=== PATIENT | female | born 1955 | race Caucasian/White ===

== ENCOUNTER 2018-05-22 08:18 | Inpatient (IN) ==
--- NOTE | 2018-05-17 18:04 | MH ---
cc: Elvin Courtney MD DATE OF ADMISSION: 05/22/2018 She is scheduled to be admitted to the hospital on 05/22/2018. ADMITTING DIAGNOSIS: Osteoarthritis of the right hip. HISTORY OF PRESENT ILLNESS: The patient is a 62-year-old white female who has had a 3-month history of progressive right hip pain unrelated to injury. She had been accustomed to walking on the beach approximately 5 miles daily as part of an exercise program and is related to this activity, she began to note generalized discomfort along the lateral aspect of her right hip radiating into her groin area that had limited her walking activities. She tried to conform to stretching exercises and taking Aleve, neither of which afforded her any appreciable benefit. The pain interfered with her ability to sleep comfortably through the night. She subsequently presented to the undersigned physician in March of this past year and at that time, her x-ray studies did reveal obvious degenerative changes with deformation of the femoral head and hypertrophic bony reaction along the margins of the femoral head. Findings and treatment options were reviewed with the patient at that time. The pros and cons of continuing with conservative management versus operative intervention that would involve a total hip replacement were outlined in detail. Emphasis was made regarding the fact that the decision to proceed with surgery would be left entirely to the patient's discretion. The patient felt that her symptoms had progressed to a point in time where she was ready to proceed accordingly and in compliance with her wishes, she was scheduled for admission in order that the above be accomplished. Of interest, it is noted that during her adolescent years, the patient did undergo operative intervention of her right hip that involved a pinning type procedure that possibly may have been related to a slipped capital femoral epiphysis. Unfortunately, there are no medical records available in this regard. PAST MEDICAL HISTORY: Otherwise significant for having undergone a left total hip arthroplasty within the previous 25 years for history of degenerative joint disease. She did well in that regard, but did subsequently require a revision of her acetabular liner in 2014 due to polyethylene wear. Her additional operative intervention has included bilateral augmentation mammoplasty with subsequent removal of implants. MEDICAL ILLNESSES: Include hypothyroidism for which she takes levothyroxine 0.125 mg daily. She has also been taking ibuprofen and Extra Strength Tylenol for pain management because of progressive pain involving her right hip area. ALLERGIES: The patient describes a DRUG ALLERGY TO SULFA, which has caused a rash formation. REVIEW OF SYSTEMS: She does wear glasses. Denies headache, seizure, or syncope. Occasional sinus congestion. There is a history of epistaxis related to her sinus problems. Auditory acuity intact. No tenderness. No bleeding gums or dysphagia. No cough, shortness of breath, upper respiratory infection, pneumonia, or tuberculosis. No angina or heart disease. Appetite good. Bowel movements regular. No hepatitis, gallbladder disease, ulcers or hemorrhoids. No urinary tract infection, no kidney stones. No history of fractures. No psychiatric illness. Her remaining review of systems is unremarkable and noncontributory. FAMILY HISTORY: The patient has been for more than 3 years. No children. FAMILY HISTORY: Positive for hypertension, diabetes and leukemia. SOCIAL HISTORY: The patient completed a BA college degree in psychology. 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 Denies active use of tobacco and ethanol. VITAL SIGNS: VITALS: Height 5 feet 6 inches, weight 169 pounds. GENERAL: An alert, oriented and responsive 62-year-old white female who sits quietly upon the examination table in mild discomfort as related to pain about her right hip. HEAD, EARS, EYES, NOSE AND THROAT: Pupils are equally round and reactive to light. Extraocular movements full. Sclerae are clear. External nares clear. External auditory canals clear. Dental intact. Mucous membranes pink and moist. Pharynx clear. NECK: Supple. Active range of motion. No associated pain. Carotid pulse is palpable bilaterally. Trachea midline. Thyroid without enlargement. LUNGS: Clear to auscultation and percussion. No CVA tenderness. No discomfort throughout the dorsolumbar spine. HEART: Regular rhythm. No murmur or gallop. ABDOMEN: Soft, nontender, bowel sounds present. PELVIC: Per primary care physician. EXTREMITIES: Right hip. No localizing tenderness about the hip area, but the groin region is described as a primary discomfort. There is restricted and guarded mobility of the hip joint in all ranges assessed especially involving internal rotation and abduction maneuvering with pain at the extreme of motion. Straight leg raising is unremarkable at 80 degrees. Simon sign is positive. Distal sensory grossly intact. Antalgic gait. NEUROLOGIC: Cranial nerves 2-12 grossly intact. IMPRESSION: Osteoarthritis, right hip. PLAN: Right total hip arthroplasty. The nature of the planned surgical procedure, the potential complications and risks associated, the expectations of surgery and the consent form have been thoroughly reviewed with the patient prior to her admission to the hospital. Derrick has indicated her full understanding regarding all of the above and given consent to proceed with treatment as outlined. Medical evaluation and clearance for surgery completed by her primary care physician, Dr. Zaire Garza. Elvin Courtney MD NBS/ct , 05:28 PM , 05:41 PM
[2018-05-22] MEDS ORDERED: Chlorhexidine 4% Topical 120 APPLIC/120 ML Bottle TOPICAL SCH (09:00)
[2018-05-22] MEDS ORDERED: ceFAZolin 2 GM Premix Inj 2 GM/50 ML PIGGYBACK IV.SIG SCH (09:00)
[2018-05-22] MEDS ORDERED: SODIUM CHLOR 0.9% IV.SIG SCH ×2 (09:00→11:59)
[2018-05-22] MEDS ORDERED: Chlorhexidine Gluconate 2% 1 Pack (2 Cloths) TOPICAL ONE (09:00)
[2018-05-22] MEDS ORDERED: TRANEXAMIC ACID IV.SIG SCH ×2 (09:00→11:59)
[2018-05-22] MEDS ORDERED: Sodium Chlor 0.9% Inj 500 ML IV.CONT ONE (09:00)
[2018-05-22] MEDS ORDERED: Metoprolol Tartrate 25 MG Tablet PO ONE (09:00)
[2018-05-22] MEDS ORDERED: Famotidine PF Inj 20 MG/2 ML Vial ONE (11:17)
[2018-05-22] MEDS ORDERED: GENTAMICIN 240 MG IRRIGATION ONE ×2 (11:45)
[2018-05-22] MEDS ORDERED: SODIUM CHLORIDE 0.9% IRRIGATION ONE ×2 (11:45)
[2018-05-22] MEDS ORDERED: Naloxone Inj 0.4 MG/ML Vial IV.PUSH PRN (12:52)
[2018-05-22] MEDS ORDERED: Zolpidem Tartrate 5 MG Tablet PO PRN (12:52)
[2018-05-22] MEDS ORDERED: Post-op Orders (for Pharmacy) OTHER STA (12:52)
[2018-05-22] MEDS ORDERED: Aluminum/Magnesium/Simethacone Susp 30 ML UDC PO PRN (12:52)
[2018-05-22] MEDS ORDERED: Bisacodyl 10 MG Supp RECTAL PRN (12:52)
[2018-05-22] MEDS ORDERED: Tranexamic Acid Inj 1,000 MG in Sodium Chlor 0.9% Inj 100 ML IV.SIG ONE (12:52)
[2018-05-22] MEDS ORDERED: Acetaminophen 325 MG Tablet PO PRN (12:52)
[2018-05-22] MEDS ORDERED: Morphine Inj 30 MG/30 ML PCA.VIAL PCA PRN (12:52)
[2018-05-22] MEDS ORDERED: Morphine Inj 4 MG/ML Vial IV.PUSH PRN (12:52)
--- NOTE | 2018-05-22 12:56 | P.DCO ---
- Diagnosis (1) Degenerative joint disease of right hip Status: Acute - Physical Therapy Order: Evaluate and treat, Improve ambulation, Strength and gait training - Home Health Nursing Order: Wound care and dressing changes, Nursing assessment with vital signs - Home Health Aide Order: To assist in: Bathing and personal care, car stower and meal prep - Instructor Decorating Order: To evaluate: Living conditions/environment, Support services - Case Management Consult Case Management Consult-Home Health: Yes - Certification I have seen patient Derrick Mao on 05/22/18. My clinical findings support the need for the requested home health care services because: Limited ability to care for self, High risk of falls I certify that my clinical findings support that this patient is homebound because: Post-op weakness, Unsteady gait/balance, Unsafe to leave home unassisted (1) Degenerative joint disease of right hip Qualifiers: Osteoarthritis type: primary Qualified Code(s): M16.11 - Unilateral primary osteoarthritis, right hip
[2018-05-22] MEDS ORDERED: fentaNYL Citrate Inj 100 MCG/2 ML Ampul ONE (13:08)
--- NOTE | 2018-05-22 13:08 | MP ---
cc: Elvin Courtney MD DATE OF OPERATION: 05/22/2018 PREOPERATIVE DIAGNOSIS: Osteoarthritis of the right hip. POSTOPERATIVE DIAGNOSIS: Osteoarthritis of the right hip. PROCEDURE PERFORMED: Right total hip arthroplasty. SURGEON: Dr. Courtney. ANESTHESIA: General endotracheal. INDICATIONS: A 62-year-old white female with a 3 month history of progressive right hip pain unrelated to injury. She had been accustomed to walking on the beach approximately 5 miles daily as part of an exercise program and subsequently began to note generalized discomfort about her right hip area that limited her walking activities. She tried to conform to stretching exercises and taking Aleve, neither of which afforded her any appreciable benefit. Her pain interfered with her ability to sleep comfortably through the night. She presented again to the undersigned physician in March of this past year, at which time x-ray studies revealed obvious degenerative changes with deformation of the femoral head and hypertrophic bony reaction along the margins of the femoral head. Findings and treatment options were reviewed. The pros and cons of continued conservative management versus operative intervention involving total hip replacement were outlined in detail with emphasis being made, that the decision to proceed with surgery would be left entirely to the patient's discretion. The patient considered her options in this regard and thereafter expressed her desire to proceed accordingly for which she was currently admitted to the hospital in order that the above be accomplished. Following the induction of satisfactory general anesthesia by endotracheal intubation as completed per the Department of Anesthesia, the patient was positioned upon the operating table in a left lateral decubitus fashion. The left hip and lower extremity proper were isolated with a U-drape, thereafter being prepped with Betadine solution and draped into a sterile field in the routine manner. Prior to initiation of the actual procedure, the standard timeout protocol was completed. All parameters were appropriately addressed and confirmed by operating room personnel. A standard posterolateral approach to the hip was initiated through a sharp skin incision and developed through underlying subcutaneous tissue with hemostasis maintained by electrocautery. By deepening dissection, the fascia overlying the gluteus musculature was exposed and thereafter sharply incised to the limits of the incision. The underlying gluteus fibers were divided with the Bovie on cutting current. Progressive dissection facilitated exposure of the short external rotator structures. The piriformis tendon was utilized as an anatomical landmark and division of these structures was completed in a superior to inferior orientation and reflected medially, exposing the posterior capsule. The sciatic nerve was protected. An L-shaped capsulotomy was accomplished through which a posterior dislocation of the femoral head completed. Examination revealed severe degenerative changes with complete erosion of articular cartilage, subchondral bone exposed and hypertrophic bony reaction. The femoral template was positioned for alignment orientation. The neck was scored and thereafter divided with power saw. The amputated segment being passed to the back table as surgical specimen. Attention was initially directed to the proximal femur. Cancellous bone was harvested. The tapered reamer was inserted for alignment orientation. Thereafter, sequential rasping and broaching was accomplished from 8 through 14 mm with the 14 mm stem determined to be a satisfactory fit. The trial component being removed, attention was redirected to the acetabulum. The labrum and reactive soft tissue were sharply excised. Progressive reaming was accomplished from 48 through 56 mm. The 56 trial shell positioned and determined to be satisfactory. With all trial components being removed, the wound was copiously irrigated with pulsating antibiotic solution, hemostasis maintained by electrocautery, although it should be noted that there was a continuous venous oozing from the femoral canal throughout the procedure. Thereafter, a 56 mm RingLoc acetabular shell was firmly seated in approximately 45 degrees inclination to the horizontal and slight anteversion. A single 25 mm 6.5 cancellous screw was inserted superiorly to augment fixation. The permanent high wall acetabular liner was affixed to the acetabular shell. Attention returned to the proximal femur. The size 14 trial femoral stem was repositioned and a trial reduction followed utilizing a 36 mm modular head with -6 mm neck length adaptor. The hip readily reduced and was carried through a passive range of motion. Stability demonstrated at 90 degrees flexion and 45 degrees internal rotation. An open dislocation was completed, the trial femoral components being removed, the canal was thoroughly irrigated and dried and thereafter a size 14 Echo [employer] standard stem was firmly seated to which, a 36 mm ceramic head with -6 mm neck length adapter attached and open reduction completed and repeat range of motion again noted stability as previously described. Final irrigation was accomplished, hemostasis maintained by electrocautery. The posterior capsule was repaired with 0 Vicryl suture. Piriformis tendon and short external rotator structures were reapproximated in a similar fashion. Hemovac drain tubes were inserted through superior stab wounds. The fascia of the gluteus musculature was reapproximated with a running 0 Vicryl suture. The remaining portion of the wound was closed in layers in the routine manner, skin margins being reapproximated with a running subcuticular 3-0 Vicryl suture over which Steri-Strips were applied. Xeroform gauze and a bulky dry sterile dressing placed. The patient was repositioned into a supine orientation and abduction splint attached. Anesthesia discontinued. The patient thus transferred to a hospital bed and returned to the recovery room in satisfactory condition, having tolerated her operative procedure well. Estimated blood loss approximately 1100 mL as determined per anesthesia. All implants were of the [employer] special events director. MD LEWIS Thibodeaux/adrian , 12:46 PM , 12:57 PM
--- NOTE | 2018-05-22 13:21 | XR ---
EXAM DATE: 05/22/2018 1:18 PM EST AGE/SEX: 62 years / Female INDICATIONS: Post op right hip surgery CLINICAL DATA: This is the patient's initial encounter. Patient reports that signs and symptoms have been present for 1 day and indicates a pain score of 2/10. MEDICAL/SURGICAL HISTORY: None. None. COMPARISON: No prior exams available for comparison. FINDINGS: Right total hip arthroplasty has been performed and prosthesis appears to be in good position. CONCLUSION: Status post right total hip arthroplasty with prosthesis in good position. Electronically signed by: Jackson Leblanc MD Board Certified Radiologist 05/22/2018 1:20 PM EST
[2018-05-22 13:28] LABS: Hematocrit 27.4 % (35.0-46.0); Hemoglobin 9.3 gm/dL (11.6-15.3)
[2018-05-22] MEDS ORDERED: Albumin Human 5% Inj 250 ML IV.SIG ONE ×3 (14:00→17:00)
--- NOTE | 2018-05-22 14:27 | P.CONIM ---
History of Present Illness Consult date: 05/22/18 Reason for Consult: Medical management Primary Care Provider: Lazarus Garza MD Chief Complaint: Pain History of Present Illness: The patient is a 62-year-old female with a past medical history of hypothyroidism who is presenting to the hospital for an elective right hip replacement. The patient says that at the age of 11 she had pins placed in both of her hips and since then she has been doing well. She eventually required a total left hip replacement x 2. She says that about a month and a half ago she developed pain in her right hip. She says the pain woke her up from sleep and was severe in nature. She has been taking hydrocodone for pain control. She has been able to ambulate without a cane or a walker. She is able to go up and down stairs. The patient had some hypotension following the procedure and was seen in the PACU. She reports some dull pain in the right hip area. She denies any recent fevers or rashes. She denies any constipation or diarrhea. She denies any burning on urination. Discussed with nursing at the bedside. Review of Systems Review of Systems: all other systems reviewed are negative [facility] Medical History Medical History GERD (gastroesophageal reflux disease) (Acute) History of fracture of right hip (Acute) Hypothyroidism (Acute) Pain in right hip (Acute) Right knee pain (Acute) Surgical History Surgical History History of left hip replacement (Acute) Hx of blepharoplasty (Acute) Family History Family History Other Patient denies medical problems Social History Social History Substance History: No History of Abuse Second Hand Smoke Exposure: No Smoking Status: Never smoker How Often Do You Have a Drink Containing Alcohol: Never Recent Travel in [place] within the Last 8 Weeks: No Recent Out of Country Travel within the Last 8 Weeks: No Medications and Allergies Allergies Allergy/AdvReac Type Severity Reaction Status Date / Time Sulfa (Sulfonamide Allergy Severe Hives Verified 05/22/18 08:45 Antibiotics) Home Medications Medication Instructions Recorded Confirmed Type hydrocodone-acetaminophen 1 tab PO HS PRN 05/10/18 05/22/18 History ibuprofen 800 mg PO HS PRN 05/10/18 05/22/18 History levothyroxine 125 mcg PO DAILY 05/10/18 05/22/18 History magnesium 200 mg PO DAILY 05/22/18 05/22/18 History Active Medications: Active Medications Acetaminophen (Tylenol) 650 mg PO Q6H PRN PRN Reason: FEVER > 102 F Hydrocodone Bitart/Acetaminophen ([place] 5/325) 1 tab PO Q4H PRN PRN Reason: PAIN LESS THAN 5 ON SCALE Hydrocodone Bitart/Acetaminophen ([place] 5/325) 2 tab PO Q6H PRN PRN Reason: PAIN SCALE 5 TO 10 Al Hydrox/Mg Hydrox/Simethicone (Mag-Al Plus Susp Liq) 30 ml PO Q6H PRN PRN Reason: INDIGESTION Al Hydroxide/Mg Hydroxide (Milk Of Magnesia Liq) 30 ml PO BID PRN PRN Reason: Mild Constipation Aspirin (Aspirin) 325 mg PO BID [facility] Bisacodyl (Dulcolax Supp) 10 mg RECTAL DAILY PRN PRN Reason: SEVERE CONSITIPATION Chlorhexidine Gluconate (Hibiclens 4% Topical) 1 applicatio TOPICAL ONCE [facility] Stop: 05/26/18 08:59 Lactated Ringer's (Lr 1000 Ml Inj) 1,000 mls @ 30 mls/hr IV.CONT .Q24H ONE Stop: 05/23/18 08:59 Last Admin: 05/22/18 08:55 Dose: 30 mls/hr Sodium Chloride (Ns Inj) 500 mls @ 30 mls/hr IV.CONT .[id number] ONE Stop: 05/23/18 01:39 Last Admin: 05/22/18 09:05 Dose: Not Given Cefazolin Sodium/Dextrose (Ancef 2 Gm Premix Inj) 2 gm in 50 mls @ 100 mls/hr IV.SIG 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 [facility] Stop: 05/26/18 08:59 Last Infusion: 05/22/18 11:47 Dose: Infused Tranexamic Acid 776 mg/ Sodium (Chloride) 107.76 mls @ 200 mls/hr IV.SIG ONCE [facility] Stop: 05/23/18 08:59 Last Infusion: 05/22/18 11:47 Dose: Infused Tranexamic Acid 776 mg/ Sodium (Chloride) 107.76 mls @ 200 mls/hr IV.SIG ONCE [facility] Stop: 05/23/18 11:58 Cefazolin Sodium/Dextrose (Ancef 1 Gm Premix Inj) 1 gm in 50 mls @ 200 mls/hr IV.SIG Q6H [facility] Stop: 05/23/18 04:14 Lactated Ringer's (Lr 1000 Ml Inj) 1,000 mls @ 125 mls/hr IV.CONT .Q8H [facility] Morphine Sulfate (Morphine Inj) 30 mg in 30 mls @ 0 mls/hr PROOF COINS INSPECTOR UNSCH PRN PRN Reason: prn pain Stop: 05/23/18 12:51 Albumin Human (Buminate 5% Inj) 250 mls @ 250 mls/hr IV.SIG ONCE ONE Stop: 05/22/18 14:59 Lactulose (Lactulose Liq) 30 ml PO DAILY PRN PRN Reason: SEVERE CONSITIPATION Levothyroxine Sodium (Synthroid) 125 mcg PO DAILY@0600 [facility] Magnesium Oxide (Mag-Ox) 200 mg PO DAILY@1100 [facility] Miscellaneous Information [place] [place] [facility] [place] 0 each OTHER UNSCH PRN PRN Reason: SEE DOSE INSTRUCTIONS Miscellaneous Information ([facility] [place] [facility] [place] 0 each OTHER UNSCH PRN PRN Reason: SEE LABEL COMMENTS Stop: 05/23/18 13:07 Morphine Sulfate (Morphine Inj) 2 mg IV.PUSH Q3H PRN PRN Reason: BREAKTHROUGH PAIN Naloxone HCl (Narcan Inj) 0.4 mg IV.PUSH PRN PRN PRN Reason: Resp rate < 10 Ondansetron HCl (Zofran Inj) 4 mg IV.PUSH Q6H PRN PRN Reason: NAUSEA OR VOMITING Povidone Iodine (Betadine 7.5% Scrub) 1 applicatio TOPICAL ONCE [facility] Stop: 05/26/18 08:59 Last Admin: 05/22/18 09:27 Dose: 1 applicatio Senna/Docusate Sodium (Raiza-Colace) 1 tab PO BID [facility] Sennosides (Senokot) 17.2 mg PO BID PRN PRN Reason: Moderate Constipation Sodium Chloride (Ns Flush) 2 ml IV.FLUSH BID [facility]ERELLE Sodium Chloride (Ns Flush) 2 ml IV.FLUSH PRN PRN PRN Reason: FLUSH AFTER USING IV ACCESS Zolpidem Tartrate (Ambien) 5 mg PO HS PRN PRN Reason: INSOMNIA Physical Exam Vital signs: Last Vital Signs Temp 98.5 F 05/22/18 09:11 Pulse 77 05/22/18 09:11 Resp 20 05/22/18 09:11 BP 165/97 H 05/22/18 09:11 Pulse Ox 100 05/22/18 09:11 Intake & Output 05/20/18 05/21/18 05/22/18 05/23/18 06:59 06:59 06:59 06:59 Intake Total 2500.76 / 2500.76 Output Total 1100 / 1100 Balance 1400.76 / 1400.76 Weight 77.6 kg Narrative: General: NAD. HEENT: NC, AT. Cardiac: RRR. No M/R/G. Lungs: CTAB. No W/R/R. Abdomen: Soft, NT, ND. Extremities: RLE with bandage around right hip. Palpable pulse along right medial malleolus. Neuro: No gross deficits. Results Labs CBC & Chem 7: 05/22/18 13:12 Imaging Impressions Hip X-Ray 05/22/18 12:49 CONCLUSION: Status post right total hip arthroplasty with prosthesis in good position. ABG Impressions Hip X-Ray 05/22/18 12:49 CONCLUSION: Status post right total hip arthroplasty with prosthesis in good position. Assessment and Plan (1) Degenerative joint disease of right hip: Code(s): M16.11 - Unilateral primary osteoarthritis, right hip Status: Acute Plan Osteoarthritis S/p right hip arthroplasty 05/22/18. She did have EBL of around 1100 ml and had post-operative hypotension requiring vasopressors. -wean vasopressors and increase IVFs. -follow CBC regularly. Initial hgb was 9.3. -pain control with a bowel regimen. -wound care, weight bearing and anticoagulation per surgery. Hypotension Related to blood loss from surgery. -wean of vasopressors and continue IVFs. -consult nurse plastics if does not resolve. Blood pressure was WNL in the PACU. Hypothyroidism Chronic. -continue levothyroxine. PPx: Per surgery _ (1) Degenerative joint disease of right hip Qualifiers: Osteoarthritis type: primary Qualified Code(s): M16.11 - Unilateral primary osteoarthritis, right hip
[2018-05-22] MEDS ORDERED: *morphine SULFATE 4 MG/ML PERIprocedure ONLY ONE (14:33)
[2018-05-22] MEDS: ceFAZolin 1 GM Premix Inj 1 GM/50 ML PIGGYBACK IV.SIG SCH ×2 (16:00→23:15)
[2018-05-22] MEDS ORDERED: ceFAZolin 1 GM Premix Inj 1 GM/50 ML PIGGYBACK IV.SIG ONE ×3 (16:05→23:30)
[2018-05-22 17:52] LABS: Hematocrit 25.2 % (35.0-46.0); Hemoglobin 8.4 gm/dL (11.6-15.3); Mean Corpuscular HGB Conc 33.5 % (32.0-36.0); Mean Corpuscular Hemoglobin 29.8 pg (27.0-34.0); Mean Corpuscular Volume 89.1 fL (80.0-100.0); Mean Platelet Volume 6.8 fL (7.0-11.0); Platelet Count 242 th/mm3 (150-450); Red Blood Count 2.83 mil/mm3 (4.00-5.30); White Blood Count 12.7 th/mm3 (4.0-11.0)
[2018-05-22] MEDS ORDERED: Phenylephrine Inj 40 MG in Dextrose 5% in Water Inj 496 ML IV.CONT PRN ×2 (18:30)
[2018-05-22] MEDS: Senna/Docusate Sodium 8.6/50 MG Tablet PO SCH (23:15)
[2018-05-22] MEDS: Aspirin 325 MG Tablet PO SCH (23:15)
[2018-05-23 00:15] LABS: Hematocrit 21.5 % (35.0-46.0); Hemoglobin 7.3 gm/dL (11.6-15.3); Mean Corpuscular HGB Conc 33.9 % (32.0-36.0); Mean Corpuscular Hemoglobin 30.2 pg (27.0-34.0); Mean Corpuscular Volume 88.9 fL (80.0-100.0); Mean Platelet Volume 6.5 fL (7.0-11.0); Platelet Count 244 th/mm3 (150-450); Red Blood Count 2.42 mil/mm3 (4.00-5.30); Red Cell Distribution Width 13.8 % (11.6-17.2); White Blood Count 9.6 th/mm3 (4.0-11.0)
[2018-05-23] MEDS: ceFAZolin 1 GM Premix Inj 1 GM/50 ML PIGGYBACK IV.SIG SCH (04:56)
[2018-05-23] MEDS: Levothyroxine 125 MCG Tablet PO SCH (05:00)
[2018-05-23 07:00] LABS: Mean Corpuscular Hemoglobin 30.8 pg (27.0-34.0); Mean Corpuscular Volume 87.9 fL (80.0-100.0); Platelet Count 244 th/mm3 (150-450); Red Blood Count 2.17 mil/mm3 (4.00-5.30); Red Cell Distribution Width 13.8 % (11.6-17.2); White Blood Count 9.1 th/mm3 (4.0-11.0)
[2018-05-23 07:08] LABS: Hemoglobin 6.7 gm/dL (11.6-15.3)
[2018-05-23 07:24] LABS: Carbon Dioxide 26.4 meq/L (21.0-32.0); Magnesium 2.1 mg/dL (1.5-2.5)
--- NOTE | 2018-05-23 08:52 | P.PNIM ---
Subjective Interval history: Follow-up right hip arthroplasty, hypotension, hypothyroidism and postop anemia. Patient seen and examined laying in bed, complaining of severe headache patient states that she usually take Afrin at home and usually help this kind of a headache at home. Patient denies any dizziness, denies any nausea or vomiting. Patient stated right hip pain is controlled, just had pain medication through the [employer]OL[employer] COU[employer]SE DESIGNER pump. Discussed the patient the low blood count, and the loss of blood from the surgery which requires blood transfusion at this time due to critical low blood count. Family in room discussed and agreed with the plan. Nurse in the room discussed patient concern. Physical Exam Vital signs: Last Vital Signs Temp 99.9 F H 05/23/18 04:49 Pulse 75 05/23/18 04:49 Resp 18 05/23/18 04:49 BP 114/59 L 05/23/18 04:49 Pulse Ox 98 05/23/18 04:49 Intake & Output 05/21/18 05/22/18 05/23/18 05/24/18 06:59 06:59 06:59 06:59 Intake Total 4510.76 / 4510.76 Output Total 1375 / 1375 Balance 3135.76 / 3135.76 Weight 84.9 kg Narrative: GENERAL: Well-developed, well-nourished, female laying in bed in no acute distress SKIN: Warm and dry. HEAD: Atraumatic. Normocephalic. EYES: Pupils equal and round. No scleral icterus. No injection or drainage. ENT: No nasal bleeding or discharge. Mucous membranes pink and moist. NECK: Trachea midline. No JVD. CARDIOVASCULAR: Regular rate and rhythm. RESPIRATORY: No accessory muscle use. Clear to auscultation. Breath sounds equal bilaterally. GASTROINTESTINAL: Abdomen soft, non-tender, nondistended. Hepatic and splenic margins not palpable. MUSCULOSKELETAL: Extremities without clubbing, cyanosis,. Right hip incision, drain in place with minimal amount of sanguinous drainage NEUROLOGICAL: Awake and alert. No obvious cranial nerve deficits. Motor grossly within normal limits. Five out of 5 muscle strength in the arms and legs except right lower extremity with limited range of motion, pulses palpable sensation intact right foot and digits with good range of motion. Normal speech. PSYCHIATRIC: Appropriate mood and affect; insight and judgment normal. Results Labs CBC & Chem 7: 05/23/18 05:28 05/23/18 05:28 Imaging Imaging: Impressions Hip X-Ray 05/22/18 12:49 CONCLUSION: Status post right total hip arthroplasty with prosthesis in good position. Assessment and Plan (1) Degenerative joint disease of right hip: Code(s): M16.11 - Unilateral primary osteoarthritis, right hip Status: Acute Plan The patient is a 62-year-old female with a past medical history of hypothyroidism who is presenting to the hospital for an elective right hip replacement. The patient says that at the age of 11 she had pins placed in both of her hips and since then she has been doing well. She eventually required a total left hip replacement x 2 Osteoarthritis S/p ELECTIVE right hip arthroplasty 05/22/18. - She did have EBL of around 1100 ml and had post-operative hypotension requiring vasopressors. -continue increase IVFs. -follow CBC regularly. Initial hgb was 9.3, trending down that requires blood transfusion -pain control with a bowel regimen. -wound care, weight bearing and anticoagulation per surgery. Acute Anemia -related to blood loss from surgery -baseline Hgb 9.3, trending down, 6.7 today -will transfuse PRBC x 2 units with Lasix in between units -recheck CBC at 4 pm and in am Hypotension Related to blood loss from surgery. -s/p vasopressors - continue IVFs. -consult batch freezer operator if does not resolve. Blood pressure was WNL in the PACU. -BP improving Hypothyroidism Chronic. -continue levothyroxine. Sinus Allergy/congestion Headache, r/t sinus congestion acute on chronic -start home med, Afrin DVT Prophylaxis : ASA bid per ortho and early ambulation Progress Note: Quality VTE Deep Vein Thrombosis/Pulmonary Embolism Present on Admission: No _ (1) Degenerative joint disease of right hip Qualifiers: Osteoarthritis type: primary Qualified Code(s): M16.11 - Unilateral primary osteoarthritis, right hip
[2018-05-23] MEDS ORDERED: Sodium Chlor 0.9% Inj 250 ML IV.SIG SCH (09:00)
[2018-05-23] MEDS: Senna/Docusate Sodium 8.6/50 MG Tablet PO SCH ×2 (10:09→21:27)
[2018-05-23] MEDS: Magnesium Oxide 400 MG Tablet PO SCH (10:09)
[2018-05-23] MEDS: Aspirin 325 MG Tablet PO SCH ×2 (10:09→21:27)
[2018-05-23 15:38] LABS: Baso % (Auto) 0.5 % (0.0-2.0); Eos % (Auto) 0.1 % (0.0-4.0); Hematocrit 27.4 % (35.0-46.0); Hemoglobin 9.7 gm/dL (11.6-15.3); Lymph # (Auto) 1.3 th/mm3 (1.0-4.8); Lymph % (Auto) 16.6 % (9.0-44.0); Mean Corpuscular HGB Conc 35.3 % (32.0-36.0); Mean Corpuscular Hemoglobin 31.1 pg (27.0-34.0); Mean Corpuscular Volume 88.3 fL (80.0-100.0); Mean Platelet Volume 6.7 fL (7.0-11.0); Mono # (Auto) 0.6 th/mm3 (0.0-0.9); Neut % (Auto) 75.8 % (16.0-70.0); Platelet Count 201 th/mm3 (150-450); Red Cell Distribution Width 14.1 % (11.6-17.2); White Blood Count 7.9 th/mm3 (4.0-11.0)
[2018-05-24] MEDS: Levothyroxine 125 MCG Tablet PO SCH (05:11)
[2018-05-24 05:57] LABS: Hematocrit 27.2 % (35.0-46.0); Hemoglobin 9.4 gm/dL (11.6-15.3); Mean Corpuscular HGB Conc 34.7 % (32.0-36.0); Mean Corpuscular Hemoglobin 30.4 pg (27.0-34.0); Mean Corpuscular Volume 87.9 fL (80.0-100.0); Mean Platelet Volume 7.1 fL (7.0-11.0); Platelet Count 192 th/mm3 (150-450); Red Cell Distribution Width 14.1 % (11.6-17.2); White Blood Count 6.5 th/mm3 (4.0-11.0)
[2018-05-24 06:14] LABS: Calcium 8.2 mg/dL (8.5-10.1); Carbon Dioxide 31.4 meq/L (21.0-32.0); Potassium 4.4 meq/L (3.5-5.1)
[2018-05-24] MEDS: Aspirin 325 MG Tablet PO SCH ×3 (07:32→21:06)
[2018-05-24] MEDS: Senna/Docusate Sodium 8.6/50 MG Tablet PO SCH ×3 (07:32→21:06)
--- NOTE | 2018-05-24 10:13 | P.PNIM ---
Subjective Interval history: Follow-up right hip arthroplasty, osteoarthritis, acute anemia , hypotension, hypothyroidism and neck muscle spasm Patient seen and examined laying in bed, family at bedside. Patient stated her neck feels much better after the Flexeril, stated she feels like she is a new person today. Patient stated also the right hip pain is controlled by pain medication, states that she is comfortable in no pain at the moment. Patient denies any headache or dizziness, denies any chest pain or shortness of breath, denies any abdominal pain, nausea, vomiting, diarrhea or constipation. Patient stated he is she is passing gas however did not have bowel movement yet. Stated just had laxative today. Nurse address no acute concerns Physical Exam Vital signs: Vital Signs 05/23/18 12:00 05/23/18 12:25 05/23/18 12:27 Temperature 98.7 F 98.5 F 98.5 F Pulse Rate 69 72 72 Respiratory Rate 18 18 18 Blood Pressure 116/57 L 116/61 116/61 Pulse Oximetry 96 94 L 99 05/23/18 12:40 05/23/18 15:00 05/23/18 16:59 Temperature 97.9 F 98.3 F 99.0 F Pulse Rate 66 74 70 Respiratory Rate 18 18 18 Blood Pressure 109/55 L 121/62 122/61 Pulse Oximetry 99 99 98 05/23/18 20:00 05/24/18 00:05 05/24/18 05:18 Temperature 98 F 97.6 F 98.2 F Pulse Rate 73 72 68 Respiratory Rate 18 17 16 Blood Pressure 111/54 L 95/55 L 137/66 Pulse Oximetry 95 94 L 95 05/24/18 08:00 Temperature 97.6 F Pulse Rate 82 Respiratory Rate 20 Blood Pressure 115/56 L Pulse Oximetry 93 L Intake & Output 05/23/18 05/24/18 05/24/18 18:59 06:59 18:59 Intake Total 1999 Balance 1999 Intake: IV 1999 LR 1000 mL Inj 1,000 ML @ 125 1999 mls/hr IV.CONT .Q8H [facility] Rx#: [id number] Intake (Blood Product) Amt 0 / 0 Rbc As-3 Leukoreduced Unit 0 / 0 [id number] Rbc As-3 Leukoreduced Unit 0 / 0 [id number] Other: Date of Last Bowel Movement 05/21/18 Narrative: GENERAL: Well-developed, well nourished, female in no apparent distress SKIN: Warm and dry. HEAD: Atraumatic. Normocephalic. EYES: Pupils equal and round. No scleral icterus. No injection or drainage. ENT: No nasal bleeding or discharge. Mucous membranes pink and moist. NECK: Trachea midline. No JVD. CARDIOVASCULAR: Regular rate and rhythm. RESPIRATORY: No accessory muscle use. Clear to auscultation. Breath sounds equal bilaterally. GASTROINTESTINAL: Abdomen soft, non-tender, nondistended. Hepatic and splenic margins not palpable. MUSCULOSKELETAL: Extremities without clubbing, cyanosis. Right hip incision dressed, drain in place with sanguinous drainage. Right lower extremity CKS in place, right pedal pulse palpable, good sensation on 5 toes NEUROLOGICAL: Awake and alert. No obvious cranial nerve deficits. Motor grossly within normal limits. Five out of 5 muscle strength in the arms and legs except right lower extremity with limited range of motion. Normal speech. PSYCHIATRIC: Appropriate mood and affect; insight and judgment normal. Results Labs CBC & Chem 7: 05/24/18 04:54 05/24/18 04:54 Assessment and Plan (1) Degenerative joint disease of right hip: Code(s): M16.11 - Unilateral primary osteoarthritis, right hip Status: Acute Plan The patient is a 62-year-old female with a past medical history of hypothyroidism who is presenting to the hospital for an elective right hip replacement. The patient says that at the age of 11 she had pins placed in both of her hips and since then she has been doing well. She eventually required a total left hip replacement x 2 Osteoarthritis S/p ELECTIVE right hip arthroplasty 05/22/18. - She did have EBL of around 1100 ml and had post-operative hypotension requiring vasopressors. -continue increase IVFs. -follow CBC regularly. Initial hgb was 9.3, trending down that requires blood transfusion -pain control with a bowel regimen. -wound care, weight bearing and anticoagulation per surgery -Orthopedic following: Appreciate recommendations Acute Anemia -related to blood loss from surgery -s/p blood transfusion PRBC x 2 units with Lasix in between units -Hemoglobin back to baseline, 9.7 today -Add iron supplements -Monitor CBC Hypotension Related to blood loss from surgery. -s/p vasopressors - continue IVFs -BP improving Hypothyroidism Chronic. -continue levothyroxine. Sinus Allergy/congestion Headache, r/t sinus congestion acute on chronic -start home med, Afrin -Improving Acute neck pain Likely muscle spasm of the neck area -continue prn Flexeril -improving DVT Prophylaxis : ASA bid per ortho and early ambulation Code Status: full code Discussed Condition With: Patient, family, and nurse Discharge Planning: Plan for discharge per Ortho recommendation Progress Note: Quality VTE Deep Vein Thrombosis/Pulmonary Embolism Present on Admission: No _ (1) Degenerative joint disease of right hip Qualifiers: Osteoarthritis type: primary Qualified Code(s): M16.11 - Unilateral primary osteoarthritis, right hip
[2018-05-24] MEDS: Magnesium Oxide 400 MG Tablet PO SCH (12:36)
[2018-05-24] MEDS: Ferrous Sulfate 325 MG Tablet PO SCH ×2 (12:45→17:40)
[2018-05-25] MEDS: Levothyroxine 125 MCG Tablet PO SCH (05:10)
[2018-05-25] MEDS: Aspirin 325 MG Tablet PO SCH ×2 (07:49→09:39)
[2018-05-25 08:09] LABS: Baso % (Auto) 0.6 % (0.0-2.0); Eos # (Auto) 0.2 th/mm3 (0.0-0.4); Eos % (Auto) 2.7 % (0.0-4.0); Hematocrit 27.1 % (35.0-46.0); Lymph # (Auto) 1.5 th/mm3 (1.0-4.8); Lymph % (Auto) 26.8 % (9.0-44.0); Mean Corpuscular HGB Conc 33.3 % (32.0-36.0); Mean Corpuscular Hemoglobin 29.7 pg (27.0-34.0); Mean Corpuscular Volume 89.2 fL (80.0-100.0); Mean Platelet Volume 6.9 fL (7.0-11.0); Mono # (Auto) 0.5 th/mm3 (0.0-0.9); Mono % (Auto) 9.2 % (0.0-8.0); Neut # (Auto) 3.4 th/mm3 (1.8-7.7); Neut % (Auto) 60.7 % (16.0-70.0); Platelet Count 204 th/mm3 (150-450); Red Blood Count 3.04 mil/mm3 (4.00-5.30); Red Cell Distribution Width 13.7 % (11.6-17.2); White Blood Count 5.6 th/mm3 (4.0-11.0)
--- NOTE | 2018-05-25 08:41 | MD ---
cc: Elvin Courtney MD, DATE OF DISCHARGE: ADMITTING DIAGNOSIS: Osteoarthritis, right hip. DISCHARGE DIAGNOSIS: Osteoarthritis, right hip. HISTORY: A 62-year-old white female with a 3-month history of progressive right hip pain unrelated to injury. She had been accustomed to beach walking approximately 5 miles daily as part of an exercise program, becoming progressively more symptomatic with pain about the right hip. It began to limit her walking activities. She tried to conform to a stretching exercise program and was taking Aleve, neither of which afforded her any benefit. The pain subsequently began to interfere with her ability to sleep comfortably through the night. She presented to the undersigned physician in March of this past year; and, at that time, her x-ray studies revealed obvious degenerative changes with deformation of the femoral head and hypertrophic bony reaction along the margins of the head itself. Findings and treatment options were reviewed. The pros and cons of continued conservative management versus operative intervention involving total hip replacement were outlined in detail. Emphasis was made regarding the fact that the decision to proceed with surgery will be left entirely to the patient's discretion. The patient felt that her symptoms had progressed to a point in time where she was ready to proceed accordingly. In compliance with her wishes, she was scheduled for admission at this time in order that the above be accomplished. PHYSICAL EXAMINATION: No localizing tenderness about the right hip. There was discomfort in the groin area. Restricted and guarded mobility in all ranges assessed, especially involving internal rotation and abduction maneuvering with pain at the extremes of motion. Straight leg raising unremarkable at 80 degrees. Simon sign positive. Distal sensory grossly intact. Antalgic gait. HOSPITAL COURSE: Prior to admission to the hospital, the patient had undergone medical evaluation and clearance for surgery as completed by her primary care physician, Dr. Garza. She was taken to the operating room on 05/22/2018 and on that date underwent a right total hip arthroplasty completed in an uncomplicated manner. The patient was noted to have tolerated her operative procedure well, her postoperative course stable thereafter. She was progressively mobilized under the guidance of physical therapy being permitted weightbearing to tolerance about the right lower extremity. Followup examination of her surgical wound noted to be intact, healing favorably with no evidence of infection. Medical followup per the hospitalist service. The patient did require transfusion of 2 units of packed cells postoperatively for a hemoglobin noted to drop to 7.3. Otherwise, her course was unremarkable. manager managed backup services assisted with discharge planning and the patient indicated her desire to be discharged home. Plans were finalized in this regard. She was subsequently discharged on the third postoperative day, at which time she was noted to be making favorable progress with regard to her rehab program. Scheduled to be seen in office followup in approximately 4 weeks. CONDITION AT THE TIME OF DISCHARGE: Stable. PROGNOSIS: Favorable. DISCHARGE MEDICATIONS: Included 1. Hydrocodone 10/325, #30. 2. Aspirin 325 mg 1 twice daily for 4 weeks, #60. 3. Flexeril 10 mg #20. MD LEWIS Thibodeaux/ts , 06:32 AM , 06:40 AM
[2018-05-25 08:55] VITALS: RESP 19; O2SAT 97
[2018-05-25] MEDS: Senna/Docusate Sodium 8.6/50 MG Tablet PO SCH (09:40)
[2018-05-25] MEDS: Magnesium Oxide 400 MG Tablet PO SCH (11:07)
[2018-05-25] MEDS: Ferrous Sulfate 325 MG Tablet PO SCH (11:07)
--- NOTE | 2018-05-25 12:01 | P.PNIM ---
Subjective Interval history: Follow-up right hip arthroplasty, osteoarthritis, acute anemia , hypotension, hypothyroidism and neck muscle spasm Patient seen and examined, stated ready to go home with home health care. Patient stated pain is better controlled, denies any neck neck pain or any migraine headache. Patient stated that she had been doing well after the Flexeril dose. Patient denies any headache or dizziness, denies any chest pain or shortness of breath, denies any abdominal pain, nausea, vomiting, diarrhea or constipation. Physical therapy and room for rehab and ambulation. Physical Exam Vital signs: Vital Signs 05/24/18 12:00 05/24/18 16:00 05/24/18 18:15 Temperature 98.1 F 97.9 F Pulse Rate 71 80 Respiratory Rate 21 20 16 Blood Pressure 106/55 L 116/60 Pulse Oximetry 98 95 05/24/18 19:07 05/24/18 23:12 05/25/18 03:22 Temperature 98.0 F 98.8 F 98.6 F Pulse Rate 87 78 76 Respiratory Rate 18 17 17 Blood Pressure 118/58 L 110/58 L 123/66 Pulse Oximetry 99 98 99 05/25/18 07:43 Temperature 98.4 F Pulse Rate 71 Respiratory Rate 19 Blood Pressure 118/61 Pulse Oximetry 97 Intake & Output 05/24/18 05/25/18 05/25/18 18:59 06:59 18:59 Intake Total 3100 / 3100 Balance 3100 / 3100 Weight 82.7 kg Intake: IV 2550 / 2550 Neosynephrine Inj 40 MG In D5W 500 / 500 Inj 496 ML @ 40 MCG/MIN 30 mls/ hr IV.CONT TITRATE PRN Rx#: [id number] Oral 550 / 550 Other: # Voids 1 3 Date of Last Bowel Movement 05/21/17 05/21/17 05/21/18 # Bowel Movements 0 Narrative: GENERAL: Well-developed, well nourished, female in no apparent distress SKIN: Warm and dry. HEAD: Atraumatic. Normocephalic. EYES: Pupils equal and round. No scleral icterus. No injection or drainage. ENT: No nasal bleeding or discharge. Mucous membranes pink and moist. NECK: Trachea midline. No JVD. CARDIOVASCULAR: Regular rate and rhythm. RESPIRATORY: No accessory muscle use. Clear to auscultation. Breath sounds equal bilaterally. GASTROINTESTINAL: Abdomen soft, non-tender, nondistended. Hepatic and splenic margins not palpable. MUSCULOSKELETAL: Extremities without clubbing, cyanosis. Right hip incision dressed, drain in place with sanguinous drainage. Right lower extremity CKS in place, right pedal pulse palpable, good sensation on 5 toes NEUROLOGICAL: Awake and alert. No obvious cranial nerve deficits. Motor grossly within normal limits. Five out of 5 muscle strength in the arms and legs except right lower extremity with limited range of motion. Normal speech. PSYCHIATRIC: Appropriate mood and affect; insight and judgment normal. Results Labs CBC & Chem 7: 05/25/18 07:14 05/24/18 04:54 Assessment and Plan (1) Degenerative joint disease of right hip: Code(s): M16.11 - Unilateral primary osteoarthritis, right hip Status: Acute Plan The patient is a 62-year-old female with a past medical history of hypothyroidism who is presenting to the hospital for an elective right hip replacement. The patient says that at the age of 11 she had pins placed in both of her hips and since then she has been doing well. She eventually required a total left hip replacement x 2 Osteoarthritis S/p ELECTIVE right hip arthroplasty 05/22/18. - She did have EBL of around 1100 ml and had post-operative hypotension requiring vasopressors. -continue increase IVFs. -follow CBC regularly. Initial hgb was 9.3, trending down that requires blood transfusion -pain control with a bowel regimen. -wound care, weight bearing and anticoagulation per surgery -Orthopedic following: Appreciate recommendations Acute Anemia -related to blood loss from surgery -s/p blood transfusion PRBC x 2 units with Lasix in between units -Hemoglobin back to baseline, 9.7 today -Add iron supplements -Monitor CBC -Follow-up with PCP and outpatient CBC Hypotension Related to blood loss from surgery. -s/p vasopressors - continue IVFs -BP improving Hypothyroidism Chronic. -continue levothyroxine. Sinus Allergy/congestion Headache, r/t sinus congestion acute on chronic -start home med, Afrin -Improving Acute neck pain Likely muscle spasm of the neck area -continue prn Flexeril -improving DVT Prophylaxis : ASA bid per ortho and early ambulation Patient medically clear for discharge to home with home health care and physical therapy. Thank you for your consultation Discharge Planning: Plan for discharge per Ortho recommendation Progress Note: Quality VTE Deep Vein Thrombosis/Pulmonary Embolism Present on Admission: No _ (1) Degenerative joint disease of right hip Qualifiers: Osteoarthritis type: primary Qualified Code(s): M16.11 - Unilateral primary osteoarthritis, right hip
[2018-05-25 13:24] VITALS: BP 116/70; PULSE 78; TEMP 98.2
== END 2018-05-25 14:34 | disposition home health service (06) | DRG 470 ==
LOC: HSDI 08:18 → N06 19:33
PROVIDERS: ADMIT Orthopaedic Surgery; ATTEND Orthopaedic Surgery
CPT/HCPCS: 36430; 73501; 80048; 83735; 85014; 85018; 85025; 85027; 86850; 86900; 86901; 86923; 88305; 88311; 94150; 97110; 97116; 97150; 97163; C1776; J0131; J0690; J1940; J2250; J2270; J2370; J2405; J3010; J7050; J7060; J7120; L1686; P9016; P9045